=== PATIENT | female | born 1935 | race African-American/Black ===

== ENCOUNTER 2020-06-24 18:40 | Emergency (ER) | payer MEDICARE ==
[~2020-06-24] VITALS: Ht 167.6 cm; Wt 95.0 kg
[2020-06-24 18:42] VITALS: BP 147/73
[2020-06-24] MEDS ORDERED: ACETAMINOPHEN 325MG TABLET PO ONE (22:00)
== END 2020-06-24 23:50 | disposition home or self-care (01) ==
LOC: ER 18:40
DX: R07.89 Other chest pain (principal); M54.5 Low back pain; V49.49XA Driver injured in collision with other motor vehicles in traffic accident, initial encounter; Y93.89 Activity, other specified; Y92.488 Other paved roadways as the place of occurrence of the external cause; I10 Essential (primary) hypertension; E04.1 Nontoxic single thyroid nodule
CPT/HCPCS: 71250; 99285